=== PATIENT | male | born 2000 | race African-American/Black ===

== ENCOUNTER 2021-11-16 11:11 | Emergency (ER) | payer OTHER ==
[2021-11-16 11:30] VITALS: BP 114/74; PULSE 61; RESP 18; TEMP 98.6
== END 2021-11-16 13:56 | disposition home or self-care (01) ==
LOC: JER 11:11
DX: U07.1 COVID-19 (principal); J02.9 Acute pharyngitis, unspecified
CPT/HCPCS: 82962; 93005; 93010; 99283-25